=== PATIENT | male | born 1960 | race Caucasian/White ===

== ENCOUNTER 2020-11-29 07:49 | Day surgery (SDC) | payer BC ==
--- NOTE | 2020-11-25 11:53 | PCM.PREANE ---
<Theresa Pratherissa - Last Filed: 11/29/20 08:44> Preanesthetic Assessment - Anesthesia/Transfusion/Family Hx Anesthesia History: Prior Anesthesia Without Reaction Family History of Anesthesia Reaction: No Transfusion History: No Prior Transfusion(s) Intubation History: Unknown - Review of Systems Pulmonary: No Symptoms (quit smoking 40 years ago "tried it one time and that was it") Cardiovascular: No Symptoms (HTN, elevated cholesterol, 4 MET exercise capacity limited by his knee pain. ) Neurological: No Symptoms, Numbness (neuropathy in both feet) Other: Reports: Diabetes (AM blood hcbao=615 mg/dl, on oral medication for control. Has not needed insulin in the past. ) - Physical Assessment NPO Status Time: 20:00 Vital Signs: 161/87 with recheck 20 minutes later 145/75 79 18 98% Weight: 104.326 kg ASA Class: 3 Mental Status: Alert & Oriented x3 Airway Class: Mallampati = 1 Dentition: Reports: Normal Dentition, Caries (Fillings) Thyro-Mental Finger Breadths: 3 Mouth Opening Finger Breadths: 3 ROM/Head Extension: Full Lungs: Clear to Auscultation, Normal Respiratory Effort - Allergies Allergies/Adverse Reactions: Allergies Allergy/AdvReac Type Severity Reaction Status Date / Time No Known Allergies Allergy Verified 11/26/20 08:17 - Anesthesia Plan Pre-Op Medication Ordered: None, Other - Acknowledgements Anesthesia Type Planned: Spinal Pt an Appropriate Candidate for the Planned Anesthesia: Yes Alternatives and Risks of Anesthesia Discussed w Pt/Guardian: Yes Pt/Guardian Understands and Agrees with Anesthesia Plan: Yes PreAnesthesia Questionnaire - HOME MEDS Home Medications: Home Meds Lisinopril 20 mg PO DAILY 12/13/16 [History] Provastatin 40 mg PO DAILY 12/13/16 [History] metFORMIN [Glucophage XR] 500 mg PO BID 12/13/16 [History] Ascorbic Acid [Vitamin C] 1,000 mg PO DAILY 11/26/20 [History] Cholecalciferol (Vitamin D3) [Vitamin D3] 5,000 unit PO DAILY 11/26/20 [History] Cinnamon Bark [Cinnamon] 1,000 mg PO DAILY 11/26/20 [History] Empagliflozin [Jardiance] 25 mg PO DAILY 11/26/20 [History] Ferrous Sulfate [Iron] 325 mg PO DAILY 11/26/20 [History] Fish Oil/[place]-3 Fatty Acids [Fish Oil 1,000 MG] 1 cap PO DAILY 11/26/20 [History] Garlic 1 tab PO DAILY 11/26/20 [History] Multivitamin 1 tab PO DAILY 11/26/20 [History] Zinc 50 mg PO DAILY 11/26/20 [History] Aspirin [Aspirin EC] 325 mg PO BID #84 tab 11/29/20 [Rx] Cyclobenzaprine [Flexeril] 10 mg PO BID PRN #20 tab 11/29/20 [Rx] oxyCODONE 5 - 10 mg PO Q4H PRN #40 tab 11/29/20 [Rx] <Bertha Montoya - Last Filed: 11/29/20 08:58> Preanesthetic Assessment - Procedure Proposed Procedure: Right Total Knee Arthroplasty with TAI ROBOT - Anesthesia/Transfusion/Family Hx Anesthesia History: Prior Anesthesia Without Reaction Family History of Anesthesia Reaction: No Transfusion History: No Prior Transfusion(s) Intubation History: Unknown - Review of Systems Pulmonary: No Symptoms (quit smoking 40 years ago) Cardiovascular: No Symptoms (HTN, elevated cholesterol, ) Neurological: No Symptoms (S/P spine surgery Lumbar laminectomy L4-L5/History of lumbar stenosis with neurogenic claudication), Numbness (neuropathy in feet) Other: Reports: Diabetes (AM blood sugar=) - Physical Assessment NPO Status Date: 11/28/20 Vital Signs: HR:79 Sat:98% Temp:97 Resp:18 B/P:145/75 Height: 1.78 m ASA Class: 3 Mental Status: Alert & Oriented x3 - Lab Values: All labs reviewed and noted and within acceptable ranges to proceed with scheduled procedure. 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 Muñoz.) Pt an Appropriate Candidate for the Planned Anesthesia: Yes Alternatives and Risks of Anesthesia Discussed w Pt/Guardian: Yes Pt/Guardian Understands and Agrees with Anesthesia Plan: Yes PreAnesthesia Questionnaire Cardiovascular History: Reports: High Cholesterol, Hypertension Respiratory History: Reports: None Musculoskeletal History: Reports: Arthritis Endocrine/Metabolic History: Reports: Diabetes, Type II Oncologic (Cancer) History: Reports: None - History Comment History Comment: metformin, prevastatin, lisinopril for home mneds - CURRENT (IN HOUSE) MEDS Current Meds: Current Medications Acetaminophen (Tylenol) 975 mg PO ONETIME ANNE Stop: 11/29/20 13:00 Last Admin: 11/29/20 07:58 Dose: 975 mg Documented by: Morphine Sulfate 8 mg/Epinephrine HCl 0.3 mg/Cefuroxime Sodium 750 mg/Ketorolac Tromethamine 30 mg/Sodium Chloride 7.9 ml 0 mg .XX ASDIRECTED PRN PRN Reason: Pain Stop: 11/29/20 18:00 Lactated Ringer's (Ringers, Lactated) 1,000 mls @ 125 mls/hr IV ASDIRECTED ANNE Stop: 11/29/20 18:00 Last Admin: 11/29/20 08:10 Dose: 125 mls/hr Documented by: Lidocaine/Sodium Bicarbonate (Buffered Lidocaine 1% In Ns 8.4%) 0.25 ml IDERM ONETIME PRN PRN Reason: Prior to IV Start Stop: 11/29/20 18:00 Last Admin: 11/29/20 08:10 Dose: 0.25 ml Documented by: Oxycodone HCl (Oxycontin) 10 mg PO ONETIME ANNE Stop: 11/29/20 13:00 Last Admin: 11/29/20 07:58 Dose: 10 mg Documented by: Pregabalin (Lyrica) 50 mg PO ONETIME ANNE Stop: 11/29/20 13:00 Last Admin: 11/29/20 07:58 Dose: 50 mg Documented by: Sodium Chloride (Saline Flush) 10 ml FLUSH ASDIRECTED PRN PRN Reason: Keep Vein Open Stop: 11/29/20 18:00 Discontinued Medications Cefazolin Sodium (Ancef) Confirm Administered Dose 2 gm .ROUTE .STK-MED ONE Stop: 11/29/20 07:22 Morphine Sulfate 8 mg/Epinephrine HCl 0.3 mg/Cefuroxime Sodium 750 mg/Ketorolac Tromethamine 30 mg/Sodium Chloride 7.9 ml 0 mg .XX ASDIRECTED PRN PRN Reason: Pain Stop: 08/09/20 18:00 Epinephrine HCl (Adrenalin) Confirm Administered Dose 1 mg .ROUTE .STK-MED ONE Stop: 11/29/20 06:28 Fentanyl (Sublimaze) Confirm Administered Dose 100 mcg .ROUTE .STK-MED ONE Stop: 11/29/20 07:22 Lidocaine HCl (Xylocaine-Mpf 1%) Confirm Administered Dose 4 mls @ as directed .ROUTE .STK-MED ONE Stop: 11/29/20 07:22 Lactated Ringer's (Ringers, Lactated) Confirm Administered Dose 2,000 mls @ as directed .ROUTE .STK-MED ONE Stop: 11/29/20 07:22 Ketamine HCl (Ketalar) Confirm Administered Dose 500 mg .ROUTE .STK-MED ONE Stop: 11/29/20 07:24 Ketorolac Tromethamine (Toradol) Confirm Administered Dose 30 mg .ROUTE .STK-MED ONE Stop: 11/29/20 07:22 Midazolam HCl (Versed 1 Mg/Ml) Confirm Administered Dose 2 mg .ROUTE .STK-MED ONE Stop: 11/29/20 07:23 Miscellaneous Medication (Phenylephrine 1 Mg/10 Ml-Ns) Confirm Administered Dose 1 mg .ROUTE .STK-MED ONE Stop: 11/29/20 07:22 Ondansetron HCl (Zofran) Confirm Administered Dose 4 mg .ROUTE .STK-MED ONE Stop: 11/29/20 07:22 Propofol (Diprivan 20 Ml) Confirm Administered Dose 400 mg .ROUTE .STK-MED ONE Stop: 11/29/20 07:24 Ropivacaine (Naropin 0.5%) Confirm Administered Dose 30 ml .ROUTE .STK-MED ONE Stop: 11/29/20 06:28
--- NOTE | 2020-11-26 05:12 | PCM.SN.2 ---
- Free Text/Narrative Note: Right selective femoral nerve block at the adductor canal for post-procedure pain control under US guidance requested by Dr. Muñoz. Time Out: 1219 Start: 1219 End: 1228 Chart reviewed. Consent signed. Questions answered. Appropriate monitors applied. Time out performed. Right mid-shaft femur identified with ultrasound, scanning medially of femur, the femoral artery in the adductor canal visualized, and the femoral nerve located laterally to the artery. The skin was prepped lateral to the ultrasound probe with chlorahexadine times two. The 21ga 4 insulated block needle was inserted under direct ultrasound guidance into the adductor canal. 25mL of 0.5% ropivacaine with 1:200,000 epinephrine was injected circumferentially around the nerve with intermittent negative aspiration noted. Patient tolerated the procedure well. Sterile technique noted along with sterile gloves, mask, and sterile probe cover. See picture on progress note and vital signs on nurses notes. Block completed in PACU. Bertha Montoya CRNA
[~2020-11-29 07:49] MED LIST: Acetaminophen 325 MG Tab PO SCH; EPINEPHrine 1 MG/ML SDV ONE; Ketamine 500 mg/10 ML MDV ONE; Ketorolac 30 MG/ML SDV ONE; Lactated Ringers 1,000 ML IV SCH; Lactated Ringers 2,000 ML ONE; Lidocaine 1% 4 ML ONE; Lidocaine 1%/Sod Bicarbonate in NS 8.4% 1 ML Syringe IDERM PRN; Midazolam 1 MG/ML 2 ML SDV ONE; Morphine 8 MG, EPINEPHrine 0.3 MG, Cefuroxime 750 MG, Ketorolac 30 MG, Sodium Chloride ... PRN; Ondansetron 4 MG/2 ML SDV ONE; Pregabalin 25 MG Cap PO SCH; Propofol 200 MG/20 ML SDV ONE; Ropivacaine 0.5% 5 MG/ML 30 ML SDV ONE; Sodium Chloride 0.9% 10 ML Syringe FLUSH PRN; ceFAZolin 1 GM Vial ONE; fentaNYL 100 MCG/2 ML SDV ONE; oxyCODONE ER 10 MG TAB.ER PO SCH
[2020-11-29] MEDS ORDERED: Vancomycin 1 GM SDV ONE (08:58)
[2020-11-29] MEDS ORDERED: Bupivacaine 0.25% 10 ML SDV ONE (08:58)
[2020-11-29] MEDS ORDERED: diphenhydrAMINE 50 MG/ML SDV IVPUSH PRN (10:20)
[2020-11-29] MEDS ORDERED: ePHEDrine 50 MG/ML SDV IVPUSH PRN (10:20)
[2020-11-29] MEDS ORDERED: Ondansetron 4 MG/2 ML SDV IVPUSH PRN (10:20)
[2020-11-29] MEDS ORDERED: fentaNYL 100 MCG/2 ML SDV IVPUSH PRN (10:20)
[2020-11-29] MEDS ORDERED: HYDROmorphone 0.5 MG/0.5 ML Syringe IVPUSH PRN (10:21)
[2020-11-29] MEDS ORDERED: Propofol 200 MG/20 ML SDV ONE (11:02)
[2020-11-29] MEDS ORDERED: Midazolam 1 MG/ML 2 ML SDV ONE (11:48)
--- NOTE | 2020-11-29 12:18 | PCM.POSTAN ---
POST ANESTHESIA ASSESSMENT - MENTAL STATUS Mental Status: Alert - VITAL SIGNS Vital Signs: Last Vital Signs Temp 97.9 11/29/20 1211 Pulse 74 11/29/20 1211 Resp 13 11/29/20 1211 BP 147/66 11/29/20 1211 Pulse Ox 98 11/29/20 1211 - RESPIRATORY Respiratory Status: Respiratory Rate WNL, Airway Patent, O2 Saturation Stable - CARDIOVASCULAR CV Status: Pulse Rate WNL, Blood Pressure Stable - GASTROINTESTINAL GI Status: No Symptoms - POST OP HYDRATION Hydration Status: Adequate & Stable
--- NOTE | 2020-11-29 12:37 | PCM48HPAN ---
Post Anesthesia Note - EVALUATION WITHIN 48HRS OF ANESTHETIC Vital Signs in Normal Range: Yes Patient Participated in Evaluation: Yes Respiratory Function Stable: Yes Airway Patent: Yes Cardiovascular Function Stable: Yes Hydration Status Stable: Yes Pain Control Satisfactory: Yes Nausea and Vomiting Control Satisfactory: Yes Mental Status Recovered: Yes Vital Signs: Last Vital Signs Temp 36.1 C 11/29/20 07:50 Pulse 79 11/29/20 07:50 Resp 18 11/29/20 07:50 BP 161/87 H 11/29/20 07:50 Pulse Ox 98 11/29/20 07:50
[2020-11-29] MEDS ORDERED: oxyCODONE 5 MG Tab PO PRN (13:11)
--- NOTE | 2020-11-29 13:24 | CR ---
Right knee: AP and crosstable lateral views of the right knee were obtained. Comparison: No prior radiographic study of the right knee is obtained. Knee prosthesis is noted. Components are aligned. Prosthesis is noted within the patella. Soft tissue are noted from the surgical procedure. No acute underlying bony abnormality is appreciated. Impression: 1. Satisfactory postop radiographic appearance of recently placed right knee prosthesis. Diagnostic code #2
[2020-11-29] MEDS ORDERED: Cyclobenzaprine 10 MG Tab PO ONE ×2 (15:04→15:07)
[2020-11-29] MEDS ORDERED: Acetaminophen 325 MG Tab PO ONE (16:00)
[2020-11-29 16:53] VITALS: BP 132/66; PULSE 78
--- NOTE | 2020-12-08 18:48 | PCM.OPNOTE ---
- General Post-Op/Procedure Note Date of Surgery/Procedure: 11/29/20 Operative Procedure(s): right total knee arthroplasty with left knee corticosteroid injection Pre Op Diagnosis: bilateral knee osteoarthrosis Post-Op Diagnosis: Same Anesthesia Technique: Local, MAC, Spinal Primary Surgeon: Adam Muñoz Anesthesia Provider: Bertha Montoya Calender Operator Helper: Sharri Raymundo Calender Operator Helper: Zina Ellis EBL in mLs: 100 Complications: None Condition: Good Free Text/Narrative:: 03/02 9mm 32x10
--- NOTE | 2020-12-12 10:54 | OR ---
DATE OF OPERATION: 11/29/2020 SURGEON: Adam Muñoz MD OPERATION PERFORMED: Right total knee arthroplasty with left knee corticosteroid injection. PREOPERATIVE DIAGNOSIS: Bilateral knee osteoarthrosis. POSTOPERATIVE DIAGNOSIS: Bilateral knee osteoarthrosis. ANESTHESIA: Local MAC with spinal. ANESTHESIA PROVIDER: Bertha Montoya CRNA. ASSISTANTS: Sharri Raymundo PA-C; and Zina Ellis LPN. ESTIMATED BLOOD LOSS: 100 mL. COMPLICATIONS: None. CONDITION: Stable. IMPLANTS: 1. Summit size 5 press-fit CR femur. 2. Lamar size 5 press-fit tibial baseplate. 3. Lamar size 5 9 mm CS polyethylene insert. 4. Lamar size 32 x 10 mm press-fit asymmetric patella. DESCRIPTION OF PROCEDURE: The patient was identified in the preoperative holding area. Proper site was marked and identified by surgeon. The patient was taken back to the operative theater where after adequate anesthesia, the patient had a nonsterile tourniquet applied to the right lower extremity. Right lower extremity was then sterilely prepped and draped in the usual sterile fashion. OR time-out was performed. The patient received 2 g of IV Ancef. Leg talley was then placed to the right lower extremity and then it was exsanguinated. Tourniquet was insufflated to 250 mmHg. Standard medial parapatellar incision was made and medial parapatellar arthrotomy was created. Deep fibers of the MCL were raised and an anterior fat pad was resected. Attention was turned to the patella. Patella measured a 24 and was resected to a 14 for a 32 x 10 mm patella. At this time, the arrays were placed on both the femur and the tibia, as well as the checkpoints after taking reference points on the medial and lateral malleolus. Once these were found to be adequate, 40 points were obtained from both the femur and the tibia and these were found to be adequate points. The plan was then placed onto the [employer] robotics platform and was customized to this patient's deformity after bringing the patient's knee out into full extension and 90 degrees of flexion, then stressing it in both varus and valgus for the gap balancing. The plan was then completed and the [employer] robotic arm was brought in. The distal femoral cut as well as the posterior chamfer cut was then completed at this time. At this time, saw blades were switched out and the anterior cut of the femur as well as the anterior chamfer and the posterior femoral cut was completed at this time and found to be adequate. Tibial resection was then completed and found to be adequate. Medial and lateral meniscus were then removed as well as any posterior osteophytes. The trial implants were then placed and size 5 was found to have adequate coverage. The size 5 femur was placed. The patient's knee was brought into full extension and found to have full extension as well as no varus-valgus instability at both 0 and 90 degrees with stressing. The trial implants were then removed. Before this, the femoral drill holes were drilled. The tibial baseplate was stamped and drilled in proper rotation. The size 5 press-fit tibia was then impacted into place. Size 5 press-fit femur was then impacted into place. 9 mm CS polyethylene insert was then impacted into place and the patient's 32 x 10 mm press-fit patella was press-fit into place. Tourniquet was deflated. Bleeders were cauterized. Periarticular injection was completed. IrriSept irrigation was irrigated through the knee along with 1 L pulse lavage irrigation with Ancef. Topical tranexamic acid and vancomycin powder were applied. A #2 barbed suture was used for closure of the medial parapatellar arthrotomy. 2-0 Vicryl and Stratafix were used for closure of the subcutaneous layer. Prineo was used for skin closure. The patient had a sterile soft dressing applied and was sent to the PACU in stable condition. STAR /[id number]
== END 2020-11-29 16:45 | disposition home or self-care (01) ==
LOC: JD.SDS 07:49
PROVIDERS: ATTEND Orthopaedic Surgery
DX: M17.0 Bilateral primary osteoarthritis of knee (principal); E78.2 Mixed hyperlipidemia; E11.9 Type 2 diabetes mellitus without complications; I10 Essential (primary) hypertension; G89.18 Other acute postprocedural pain; Z79.899 Other long term (current) drug therapy; Z79.84 Long term (current) use of oral hypoglycemic drugs; Z79.82 Long term (current) use of aspirin
CPT/HCPCS: 20610; 27447; 73560; 82962; 97110; 97116; 97161; 97165; A9270; C1713; C1776; J0171; J0690; J0697; J1885; J2250; J2270; J2370; J2405; J2704; J2795; J3010; J3370; J3490; J7120; 01402; 64450; J2001

== ENCOUNTER 2021-12-07 06:46 | Emergency (ER) | payer BC ==
[2021-12-07 07:59] VITALS: BP 134/74; PULSE 92
[2021-12-07] MEDS ORDERED: Sodium Chloride 0.9% 10 ML Syringe FLUSH PRN (08:06)
== END 2021-12-07 10:34 | disposition home or self-care (01) ==
LOC: JD.ED 06:46
DX: U07.1 COVID-19 (principal); J40 Bronchitis, not specified as acute or chronic; J02.0 Streptococcal pharyngitis; E78.00 Pure hypercholesterolemia, unspecified; I10 Essential (primary) hypertension; M19.90 Unspecified osteoarthritis, unspecified site; E11.9 Type 2 diabetes mellitus without complications; Z79.84 Long term (current) use of oral hypoglycemic drugs; Z79.82 Long term (current) use of aspirin; Z79.899 Other long term (current) drug therapy
CPT/HCPCS: 36415; 71045; 71045-26; 80053; 81001; 85025; 86140; 99283-25; U0002

== ENCOUNTER 2024-05-01 09:37 | Emergency (ER) | payer BC, MEDICARE ==
[2024-05-01 10:41] LABS: BASOPHILS PERCENT AUTO 0.2 % (0.0-1.0); HEMATOCRIT 41.5 % (42.0-52.0); HEMOGLOBIN 13.6 gm/dl (14.0-18.0); IMMATURE GRAN ABSOLUTE AUTO 0.04 K/mm3 (0.00-0.05); IMMATURE GRAN PERCENT AUTO 0.4 % (0.0-0.4); LYMPHOCYTES ABSOLUTE AUTO 0.4 K/mm3 (1.0-4.8); LYMPHOCYTES PERCENT AUTO 4.4 % (24.0-44.0); MEAN CORPUSCULAR HEMOGLOBIN 28.2 pg (28.0-32.0); MEAN CORPUSCULAR HGB CONC 32.8 g/dl (32.0-36.0); MEAN CORPUSCULAR VOLUME 86.1 fl (83.0-99.0); MEAN PLATELET VOLUME 9.7 fl (9.4-12.4); MONOCYTES ABSOLUTE AUTO 0.6 K/mm3 (0.0-0.8); MONOCYTES PERCENT AUTO 6.2 % (0.0-8.0); NEUTROPHILS ABSOLUTE AUTO 8.3 K/mm3 (1.8-7.7); NEUTROPHILS PERCENT AUTO 88.8 % (41.0-71.0); PLATELET COUNT,PLT 181 K/mm3 (150-400); RED BLOOD CELL COUNT 4.82 M/mm3 (4.52-5.90)
[2024-05-01 10:43] LABS: APPEARANCE,URINE CLEAR (Clear); BILIRUBIN,URINE NEGATIVE (Negative); COLOR,URINE YELLOW (Yellow); GLUCOSE,URINE 2+ (Negative); KETONES,URINE 3+ (Negative); LEUKOCYTE ESTERASE,URINE NEGATIVE (Negative); NITRITE,URINE NEGATIVE (Negative); OCCULT BLOOD,URINE TRACE-INTACT (Negative); PH,URINE 5.5 (5.0-8.0); PROTEIN,URINE 1+ (Negative); UROBILINOGEN,URINE 0.2 (0.2-1.0)
[2024-05-01 10:52] LABS: BACTERIA,URINE FEW /hpf (FEW); EPITHELIAL CELLS,URINE 0-5 /hpf (0-5); MUCUS,URINE RARE /hpf (FEW); WBC,URINE 0-5 /hpf (0-5)
[2024-05-01 11:01] LABS: A/G RATIO 0.8 (1-2); ALBUMIN 3.3 g/dl (3.4-5.0); BILIRUBIN TOTAL 0.7 mg/dL (0.2-1.0); BUN/CREATININE RATIO 16.4 (14-18); CALCIUM 9.4 mg/dL (8.5-10.1); CREATININE 1.1 mg/dL (0.7-1.3); EST CRCL DRUG DOSING (CG) 66.95 mL/min; PROTEIN TOTAL,TP 7.3 g/dl (6.4-8.2)
[2024-05-01] MEDS: Sodium Chloride 0.9% 10 ML Syringe FLUSH PRN (11:09)
[2024-05-01 11:24] LABS: CORONAVIRUS COVID-19 NAA POSITIVE (NEGATIVE); INFLUENZA A NAA NEGATIVE (NEGATIVE); RESPIRATORY SYNCYTIAL VIR NAA NEGATIVE (NEGATIVE)
[2024-05-01] MEDS: Sodium Chloride 0.9% 1,000 ML IV SCH (11:45)
[2024-05-01] MEDS: cefTRIAXone 1 GM in Sodium Chloride 0.9% 100 ML IV ONE (11:57)
[2024-05-01 14:57] VITALS: BP 128/65; PULSE 106
== END 2024-05-01 13:06 | disposition home or self-care (01) ==
LOC: JD.ED 09:37
DX: U07.1 COVID-19 (principal); N41.0 Acute prostatitis; I10 Essential (primary) hypertension; E78.00 Pure hypercholesterolemia, unspecified; E11.9 Type 2 diabetes mellitus without complications; Z79.899 Other long term (current) drug therapy; Z79.84 Long term (current) use of oral hypoglycemic drugs
CPT/HCPCS: 0241U; 36415; 71045; 80053; 81001; 85025; 96365; 99283; J0696; J3490; J7030